=== PATIENT | female | born 1945 | race Asian ===

== ENCOUNTER 2017-03-20 13:08 | Outpatient (CLI) | payer OTHER | END 2017-03-20 18:27 | disposition home or self-care (01) | LOC: SMA 13:08 | PROVIDERS: ATTEND Internal Medicine | DX: Z12.31 Encounter for screening mammogram for malignant neoplasm of breast (principal); I25.10 Atherosclerotic heart disease of native coronary artery without angina pectoris | CPT/HCPCS: G0202 ==

== ENCOUNTER 2018-03-09 11:56 | Outpatient (CLI) | payer OTHER | END 2018-03-09 19:03 | disposition home or self-care (01) | LOC: SRD 11:56 | PROVIDERS: ATTEND Internal Medicine | DX: M25.411 Effusion, right shoulder (principal) | CPT/HCPCS: 71130-TC ==

== ENCOUNTER 2018-03-24 12:39 | Outpatient (CLI) | payer OTHER | END 2018-03-24 19:18 | disposition home or self-care (01) | LOC: SMA 12:39 | PROVIDERS: ATTEND Internal Medicine | DX: Z12.31 Encounter for screening mammogram for malignant neoplasm of breast (principal) | CPT/HCPCS: 77067 ==

== ENCOUNTER 2018-10-06 15:44 | Outpatient (CLI) | payer OTHER | END 2018-10-06 18:31 | disposition home or self-care (01) | LOC: SRD 15:44 | PROVIDERS: ATTEND Internal Medicine | DX: R22.1 Localized swelling, mass and lump, neck (principal) | CPT/HCPCS: 70360-TC ==

== ENCOUNTER 2019-08-05 12:49 | Outpatient (CLI) | payer OTHER | END 2019-08-05 21:27 | disposition home or self-care (01) | LOC: SMA 12:49 | PROVIDERS: ATTEND Internal Medicine | DX: Z12.31 Encounter for screening mammogram for malignant neoplasm of breast (principal) | CPT/HCPCS: 77067 ==

== ENCOUNTER 2021-07-13 12:50 | Outpatient (CLI) | payer OTHER | END 2021-07-14 13:32 | disposition home or self-care (01) | LOC: SMA 12:50 | PROVIDERS: ATTEND Internal Medicine | DX: Z12.31 Encounter for screening mammogram for malignant neoplasm of breast (principal) | CPT/HCPCS: 77067 ==

== ENCOUNTER 2022-08-30 08:26 | Outpatient (CLI) | payer OTHER | END 2022-08-30 18:53 | disposition home or self-care (01) | LOC: SMA 08:26 | PROVIDERS: ATTEND Internal Medicine | DX: Z12.31 Encounter for screening mammogram for malignant neoplasm of breast (principal) | CPT/HCPCS: 77067 ==